=== PATIENT | female | born 1940 | race Caucasian/White ===

== ENCOUNTER 2024-12-09 11:18 | Emergency (ER) | payer MEDICARE, SELFPAY ==
--- NOTE | ~2024-12-09 | CT_ITS ---
EXAMINATION: CT HEAD WITHOUT CONTRAST CLINICAL INFORMATION: Fall, right forehead hematoma, on aspirin, R/O COMPARISON: February 28, 2012 is not available on PACS. TECHNIQUE: Contiguous axial imaging was performed from the skull base to vertex without intravenous administration of contrast. This CT examination was performed using dose optimization techniques as appropriate, variously including the following: *Automated exposure control *Adjustment of mA and/or kV according to patient size (this includes techniques or standardized protocols for targeted exams where dose is matched to indication/reason for exam; i.e. extremities or head) *Use of iterative reconstruction technique DLP: 581 mGy-cm FINDINGS: Soft tissue contusion right frontal/forehead. No acute cortical disruption in the bony calvarium. No acute intracranial hemorrhage, mass effect, midline shift, hydrocephalus or herniation. Rivas-white matter differentiation is normal. Bilateral multifocal patchy and confluent deep periventricular white matter hypodensities involving centrum semiovale and simon radiata. Sellar/suprasellar region demonstrated no gross masses or focal hemorrhage. Craniocervical junction is intact with normal position of the cerebellar tonsils. No air-fluid levels in the paranasal sinuses. Poor pneumatization of the left mastoid air cells. Tympanic cavities are aerated. No gross hematoma in the intraconal or extraconal compartments of the orbits. Intracranial vascular calcifications. Small lipoma anterior interhemispheric falx, congenital.. CT/CT head/brain wo IV con IMPRESSION: Soft tissue contusion right frontal/forehead. No acute fracture or bony calvarium. No acute intracranial hemorrhage. 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 Atherosclerosis disease. Electronically signed by: Stew Barrera MD 12/09/2024 01:59 PM EDT
[2024-12-09 11:22] VITALS: BP 160/74; PULSE 96; O2SAT 99
[2024-12-09 11:26] VITALS: BMI 22.9
--- OUTSIDE RECORDS SUMMARY | 2024-12-09 12:08 | XMS_ITS | Continuity of Care Document ---
Author Organization [facility] Address [address] [place] [address]- Support Name Relationship Address Phone BRANDON, JIMMIE Personal Relationship Unknown Unav ailable BRANDON, HUGO Personal Relationship Unknown Unav ailable BRANDON, HUGO Personal Relationship Unknown Unav ailable BRANDON, JIMMIE Personal Relationship Unknown Unav ailable BRANDON, HUGO Personal Relationship Unknown Unav ailable BRANDON, HUGO Personal Relationship Unknown Unav ailable BRANDON, JIMMIE Personal Relationship Unknown Unav ailable BRANDON, HUGO Personal Relationship Unknown Unav ailable BRANDON, HUGO Personal Relationship Unknown Unav ailable BRANDON, JIMMIE Personal Relationship Unknown Unav ailable BRANDON, ENMOND Personal Relationship Unknown Unav ailable BRANDON, JIMMIE Personal Relationship Unknown Unav ailable BRANDON, JIMMIE Personal Relationship Unknown Unav ailable BRANDON, JIMMIE Personal Relationship Unknown Unav ailable BRANDON, JIMMIE Personal Relationship Unknown Unav ailable BRANDON, JIMMIE Personal Relationship Unknown Unav ailable BRANDON, JIMMIE Personal Relationship Unknown Unav ailable BRANDON, HUGO Personal Relationship Unknown Unav ailable BRANDON, JIMMIE Personal Relationship Unknown Unav ailable BRANDON, HUGO Personal Relationship Unknown Unav ailable BRANDON, HUGO Personal Relationship Unknown Unav ailable BRANDON, JIMMIE Personal Relationship Unknown Unav ailable BRANDON, JIMMIE Personal Relationship Unknown Unav ailable BRANDON, HUGO spouse Unknown Unavailable BRANDON, HUGO Personal Relationship Unknown Unav ailable BRANDON, JIMMIE Personal Relationship Unknown Unav ailable BRANDON, JIMMIE Personal Relationship Unknown Unav ailable GOODWIN, ARMIDA child Unknown Unavailable BRANDON, JIMMIE Personal Relationship Unknown Unav ailable Care Team Providers Care Certified Nurse Practitioner Name Role Phone Jose Roberto Cifuentes MD Primary Care Physician Encounter [facility] Date(s): 11/07/24 - 12/07/24 [facility] [address] [place] [id number] Encounter Type: Triage Allergies, Adverse Reactions, Alerts Substance Criticality Severity Reaction Reaction Severity Status Biaxin Hives Active Immunizations Given and Recorded Vaccine Date Status Refusal Reason influenza virus vaccine, inactivated 1 05/04/24 Gi junie influenza virus vaccine, inactivated 04/26/23 Elvis rded influenza virus vaccine, inactivated 05/07/22 Elvis rded influenza virus vaccine, inactivated 05/24/21 Give n influenza virus vaccine, inactivated 2 05/07/18 Gi junie influenza virus vaccine, inactivated 3 04/29/17 Gi junie influenza virus vaccine, inactivated 06/04/16 Give n influenza virus vaccine, inactivated 06/20/15 Give n influenza virus vaccine, inactivated 05/30/14 Give n influenza virus vaccine, inactivated 05/19/13 Give n influenza virus vaccine, inactivated 05/08/11 Give n SARS-CoV-2(COVID-19)mRNA-LNP vac([id number]) 08/10/23 Recorded [id number] bivalent booster vax 07/22/22 Recorded SARS-CoV-2 (COVID-19) mRNA-1273 vaccine 04/01/22 R ecorded SARS-CoV-2 (COVID-19) mRNA-1273 vaccine 04/01/22 R ecorded SARS-CoV-2 (COVID-19) mRNA-1273 vaccine 05/29/21 R ecorded SARS-CoV-2 (COVID-19) mRNA-1273 vaccine 11/21/20 R ecorded SARS-CoV-2 (COVID-19) mRNA-1273 vaccine 10/24/20 R ecorded Influenza Virus Vaccine (oldterm) 05/23/19 Recorde d Influenza Virus Vaccine (oldterm) 4 06/08/07 Given Influenza Virus Vaccine (oldterm) 5 07/01/06 Given tetanus-diphtheria toxoids (Td) 10/10/16 Given tetanus-diphtheria toxoids (Td) 02/28/12 Recorded tetanus-diphtheria toxoids (Td) 04/03/05 Given pneumococcal 13-valent vaccine 09/06/14 Given Pneumococcal Vaccine (oldterm) 04/03/05 Given 1Result Comment: [facility]: [id number] Screening Checklist reviewed with patient. Negative for any contraindications. 2Result Comment: [05/07/2018] [facility] [id number] 3Result Comment: [04/29/2017] [facility] [id number] 4Admin Note: given in clinic 5Admin Note: GIVEN IN CLINIC SHAM Medications aspirin 81 mg oral capsule 1 capsule = 81 mg, By Mouth, Daily, # 90 capsule, 3 Refills, Maintenance, 04/12/22 10:57:00 AM EDT, [id number], Partial fill upon patient request if the prescription is for a scheduleII opioid drug., 165.1, cm, 04/11/22 9:52:00 EDT, Height Start Date: 04/12/22 Status: Ordered Quantity: 90.0 Unit: capsule Repeat number: 4 atorvastatin 20 mg oral tablet See Instructions, TAKE 1 TABLET DAILY, # 90 tablet, 1 Refills, Maintenance, 07/15/24 9:12:00 AM EST, [facility], 158.7, cm, 07/06/24 14:12:00 EST, Height Start Date: 07/15/24 Status: Ordered Quantity: 90.0 Unit: tablet Repeat number: 1 ezetimibe 10 mg oral tablet See Instructions, TAKE 1 TABLET DAILY, # 90 tablet, 3 Refills, Maintenance, 07/06/24 2:36:00 PM EST,[facility], 158.7, cm, 07/06/24 14:12:00 EST, Height Start Date: 07/06/24 Status: Ordered Quantity: 90.0 Unit: tablet Repeat number: 4 Farxiga 5 mg oral tablet 1 tablet = 5 mg, By Mouth, Daily, Alternative to Invokana, # 90 tablet, 3 Refills, Maintenance, 11/11/24 4:21:00 AM EDT, Tablet, [facility], Partial fill upon patient request if theprescription is for a schedule II opioid drug., 158.7, cm, 10/14/24 15:50:00 EDT, Height Start Date: 11/11/24 Status: Ordered Quantity: 90.0 Unit: tablet Repeat number: 4 Invokana 100 mg oral tablet 1 tablet = 100 mg, By Mouth, Daily at bedtime, # 90 tablet, 3 Refills, Maintenance, 11/01/24 10:42:00AM EDT, Tablet, [facility], Partial fill upon patient request if the prescription is for a schedule II opioid drug., 158.7, cm, 10/14/24 15:50:00 EDT, Height Start Date: 11/01/24 Status: Ordered Quantity: 90.0 Unit: tablet Repeat number: 4 levothyroxine 0.05 mg oral tablet 1 tablet = 50 mcg, By Mouth, Daily, # 90 tablet, 3 Refills, Maintenance, 07/06/24 2:36:00 PM EST, Tablet, [facility], Partial fill upon patient request if the prescription is for a schedule II opioid drug., 158.7, cm, 07/06/24 14:12:00 EST, Height Start Date: 07/06/24 Status: Ordered Quantity: 90.0 Unit: tablet Repeat number: 4 Lyumjev KwikPen 100 units/mL injectable solution = 1 units, Subcutaneous Infusion, Once, tid before meals. BS <100, none; 100-150 6 units; 151-200 7 units; 201-250 8 units; 251-300 9 units; 301-350 10 units; > 350 11 units. Replaces Humalog, # 15 mL, 3 Refills, Soft Stop, 10/17/23 5:46:00 AM EDT, [facility], Partial fill upon patient request if the prescription is for a schedule II opioid drug., 158.7, cm, 09/14/23 14:53:00 EST, Height Start Date: 10/17/23 Status: Ordered Quantity: 15.0 Unit: mL Repeat number: 4 Lyumjev KwikPen 100 units/mL injectable solution = 1 units, Subcutaneous Infusion, Once, 10 UNITS Befroe breakfast and diner an 4 units after [facility] meal, # 15 mL, 3 Refills, Soft Stop, 11/01/24 10:42:00 AM EDT, [facility], Partial fill upon patient request if the prescription is for a schedule II opioid drug., 158.7, cm, 10/14/24 15:50:00 EDT, Height Start Date: 11/01/24 Status: Ordered Quantity: 15.0 Unit: mL Repeat number: 4 Obey Álvarez 100 units/mL injectable solution = 1 units, Subcutaneous Infusion, Once, Take 10 units before breakfast and dinner and 4 units afterlunch ([facility]) meal, # 15 mL, 3 Refills, Soft Stop, 11/08/24 5:53:00 PM EDT, [facility], Partial fill upon patient request if the prescription is for a schedule II opioid drug., 158.7, cm, 10/14/24 15:50:00 EDT, Height Start Date: 11/08/24 Status: Ordered Quantity: 15.0 Unit: mL Repeat number: 4 metFORMIN 1000 mg oral tablet 1 tablet, By Mouth, Daily, # 90 tablet, 3 Refills, Maintenance, 07/06/24 2:35:00 PM EST, [facility], 158.7, cm, 07/06/24 14:12:00 EST, Height Start Date: 07/06/24 Status: Ordered Quantity: 90.0 Unit: tablet Repeat number: 4 Pen [place], 31 G x 5 mm BD Ultra Fine III See Instructions, # 200 each, Refills 5, Tot. Refills 5, Maintenance, Use to inject insulin TID Dx:250.02 IDDM 90 day supply, 10/21/24 10:21:00 AM EDT, Compound, 158.7, cm, 10/14/24 15:50:00 EDT, Height Start Date: 10/21/24 Stop Date: 04/19/25 Status: Ordered Quantity: 200.0 Unit: each Repeat number: 6 Tresiba 100 units/mL subcutaneous solution = 40 units, Subcutaneous Infusion, Daily, Renew, but do not send until June, # 30 mL, 3 Refills, Maintenance, 10/18/24 9:07:00 AM EDT, [facility] #[id number], Partial fill upon patient request if the prescription is for a schedule II opioid drug., 158.7, cm, 10/14/24 15:50:00 EDT, Height Start Date: 10/18/24 Status: Ordered Quantity: 30.0 Unit: mL Repeat number: 4 Indication: Type 2 diabetes mellitus without complications Problem List Condition Confirmation Course Effective Dates Status H ealth Status Informant Adult-onset obesity Confirmed Active Depression Confirmed Active Diabetes mellitus - adult onset Confirmed Active Diabetic renal disease Confirmed Active Hyperlipidemia Confirmed Active Hypertension Confirmed Active Right lumbar radiculopathy Confirmed Active Mild non proliferative diabetic retinopathy Confirmed Active Diabetes mellitus, type 2 Confirmed Active Social History Social History Type Response Smoking Status Never (less than 100 in lifetime) entered on: 10/14/24 Sex Sex Representation Female (finding) Patient Care team information Care Team Personnel Name: Jose Roberto Cifuentes MD Position: S Physician - Primary Care Member Role: PCP Address: [address] [place] [id number] Telecom: Care Team Related Persons Name: HUGO TAYLOR Name: ARMIDA GOODWIN Insurance Providers Guarantor name: WILLIAM ESTEBAN [facility] Information #: 1 Payer: MEDICARE PART B OUTPT Member Number: NA Policy Number: NA Group Number: NA
--- OUTSIDE RECORDS SUMMARY | 2024-12-09 12:08 | XMS_ITS | Continuity of Care Document ---
Author Organization [facility] Address [address] [place] [address]- Support Name Relationship Address Phone BRANDON, JIMMIE Personal Relationship Unknown Unav ailable BRANDON, HUGO Personal Relationship Unknown Unav ailable BRANDON, HUGO Personal Relationship Unknown Unav ailable BRANDON, JIMMIE Personal Relationship Unknown Unav ailable BRANDON, HUGO Personal Relationship Unknown Unav ailable BRANDON, HUGO Personal Relationship Unknown Unav ailable BRANDON, JIMMEI Personal Relationship Unknown Unav ailable BRANDON, HUGO [...] Unknown Unav ailable Care Team Providers Care [employer] Chemist Name Role Phone Jose Roberto Cifuentes MD Primary Care Physician [phone] Encounter [facility] Date(s): 11/08/24 - 12/08/24 [facility] [address] [place], [place] [address] Encounter Type: Triage Allergies, Adverse Reactions, Alerts [...] virus vaccine, inactivated 05/08/11 Give n SARS-CoV-2(COVID-19)mRNA-LNP vac([id number]) 08/10/23 Recorded [id number] bivalent booster vax 07/22/22 Recorded SARS-CoV-2 (COVID-19) [...] Pneumococcal Vaccine (oldterm) 04/03/05 Given 1Result Comment: [facility]: [id number] Screening Checklist reviewed with patient. Negative for any contraindications. 2Result Comment: [05/07/2018] [facility] [id number] 3Result Comment: [04/29/2017] [facility] [id number] 4Admin Note: given in clinic 5Admin Note: GIVEN IN CLINIC SHAM Medications aspirin 81 mg oral capsule 1 capsule = 81 mg, By Mouth, Daily, # 90 capsule, 3 Refills, Maintenance, 04/12/22 10:57:00 AM EDT, [facility] #[id number], Partial fill upon patient request if the [...] breakfast and dinner and 4 units afterlunch ([facility]) meal, # 15 mL, 3 Refills, Soft [...] 90.0 Unit: tablet Repeat number: 4 Pen [place], 31 G x 5 mm BD Ultra [...] 3 Refills, Maintenance, 10/18/24 9:07:00 AM EDT, [facility] #[id number], Partial fill upon patient request if the [...] Care team information Care Team Personnel Name: Vane PERES, Jose Roberto Maria Position: [facility] Physician - Primary Care Member Role: PCP Address: [address] [place] [id number] Telecom: Care Team Related Persons Name: HUGO TAYLOR Name: ARMIDA GOODWIN Insurance Providers Guarantor name: WILLIAM ESTEBAN [facility] Plan Information #: 1 Payer: MEDICARE PART B OUTPT Member Number: NA Policy Number: NA Group Number: NA
[2024-12-09 12:21] VITALS: BP 165/91; PULSE 104; RESP 20; TEMP 36.8; O2SAT 98
--- NOTE | 2024-12-09 12:35 | ED.FALL ---
HPI - Fall General Chief Complaint: Fall Stated Complaint: FALL Time Seen by Provider: 12/09/24 12:23 Source: patient Mode of arrival: EMS Limitations: no limitations History of Present Illness ED Provider: Dr. Tam Melchor HPI Narrative: 84-year-old female with a history of diabetes mellitus, hypertension, hypothyroidism who presents emergency department for evaluation of trip and fall with head injury. Patient was with her friend at the [facility]. When they left the building she tripped on a curb falling forward and striking her head. Patient also injured her left knee and right thumb. She denied any loss of consciousness. Here in the emergency department she is complaining of pain in her right forehead where she has a hematoma otherwise she has no other complaints. She denied headache, nausea, vomiting, weakness, neck pain, abdominal pain, chest pain. The daughter states that her last tetanus vaccination was given in 2017. Related Data Allergies Allergy/AdvReac Type Severity Reaction Status Date / Time clarithromycin [From BIAXIN] Allergy Unknown PT DOESN'T Verified 12/09/24 11:34 REMEMBER REACTION Review of Systems Review of Systems: Yes all other systems are reviewed and are negative [facility] Social History Social History Advance Directives: No Advance Directives Information Provided: Yes Do you have a plan to hurt others: No Plan Physical Exam Vital Signs: Vital Signs: Last Vital Signs Temp 98.2 F 12/09/24 12:21 Pulse 98 12/09/24 16:05 Resp 16 12/09/24 16:05 BP 179/86 H 12/09/24 16:05 Pulse Ox 97 12/09/24 16:05 O2 Del Method Room Air 12/09/24 16:05 BMI result Body Mass Index 22.9 Vital signs revealed an elevated heart rate of 104, elevated blood pressure of 165/91 Exam: General: Awake, alert in no distress Head: Normocephalic, 4 x 4 cm hematoma to the right forehead with an abrasion and no suturable lesion EENT: PERRL, Lids normal, sclera normal, conjunctiva normal, nose normal , ears normal, throat without erythema or exudates, no facial tenderness Neck: Supple, no trapezius muscle tenderness or C-spine tenderness, no adenopathy Lung: breath sounds symmetric, no wheezing, rales or rhonchi Chest: symmetric movement, nontender Heart: regular rate and rhythm, normal S1, S2 no murmurs or rubs Abdomen: soft, non-tender, nondistended, normal bowel sounds Back: no vertebral tenderness, no CVAT Extremities: Patient has an abrasion to her left knee, full range of motion of her upper and lower extremities. Patient has a small abrasion to her left thumb Neuro: Awake, alert, oriented, normal speech, cranial nerves intact, moves all extremities symmetrically Psych: Pleasant, cooperative Medications Administered Discontinued Medications Generic Name Dose Route Start Last Admin Trade Name Andres PRN Reason Stop Dose Admin Acetaminophen 975 mg 12/09/24 15:31 12/09/24 15:40 Acetaminophen 325 Mg Tablet PO 12/09/24 15:32 975 mg ONCE ONE Administration Bacitracin 1 appl 12/09/24 12:37 12/09/24 13:08 Bacitracin Oint 0.9 Gm Packet TOPICAL 12/09/24 12:38 1 appl ONCE ONE Administration Protocol Diphtheria/Tetanus/Acell Pertussis 0.5 ml 12/09/24 12:41 12/09/24 13:08 Diphth,Pertus(Acell),Tet Adult 0.5 Ml Syringe IM 12/09/24 12:42 0.5 ml .ONCE ONE Administration Medical Decision Making Medical Decision Making MDM Narrative: 84-year-old female with a history of diabetes mellitus, hypertension, hypothyroidism who presents emergency department for evaluation of trip and fall with head injury. Patient was with her friend at the [facility]. When they left the building she tripped on a curb falling forward and striking her head. Patient also injured her left knee and right thumb. She denied any loss of consciousness. Here in the emergency department she is complaining of pain in her right forehead where she has a hematoma otherwise she has no other complaints. She denied headache, nausea, vomiting, weakness, neck pain, abdominal pain, chest pain. The daughter states that her last tetanus vaccination was given in 2017. Vital signs revealed an elevated heart rate and elevated blood pressure otherwise unremarkable. Exam did reveal a large hematoma with an abrasion to her right forehead, abrasion to her left knee and abrasion to left thumb. She had no other significant tenderness. Differential diagnosis: ?Includes but is not limited to skull fracture, intracranial bleed, forehead hematoma Course: 12:[address] scan of the head without IV contrast to rule out fracture, intracranial bleed. Patient was given Tdap vaccination IM. Patient's abrasions were cleaned, covered with bacitracin and nonstick dressing by ED PCT. 17:38 CT of the head revealed no acute fracture or bleed. I did discuss this with the patient and the patient's daughter. The patient was advised to stop her aspirin for 2 days. She was advised to take Tylenol as needed for pain and to avoid NSAIDs. She was advised to apply bacitracin twice a day to her abrasions. She was given printed and verbal instructions on abrasions and head injuries and discharged in the care of her daughter. Admission/Observation Consideration of admission/observation: Escalation of care including admission/observation considered (Yes) Lab Data MDM Lab Attestation statement: I reviewed the patient's lab results. Labs: Lab Results 12/09/24 Range/Units 15:35 POC Glucose 69 (60-115) mg/dL Radiology Impression Discussion of test interpretation with radiology: I have reviewed the radiologist's reading. Radiologist Impression: CT head/brain wo IV con IMPRESSION: Soft tissue contusion right frontal/forehead. No acute fracture or bony calvarium. No acute intracranial hemorrhage. 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 Atherosclerosis disease. Electronically signed by: Stew Barrera MD 12/09/2024 01:59 PM Independent Historian Clinical information obtained from an independent historian. History obtained from or confirmed by: Other (Daughter) Chronic Conditions Patient?s care impacted by: Diabetes and Hypertension Discharge Plan Discharge Clinical Impression: Closed head injury, Fall from slip, trip, or stumble, Traumatic hematoma of forehead, Abrasion Patient Disposition: Home, Self-Care Instructions: Head Injury (DC), Abrasion (ED) Additional Instructions: Your CT scan did not reveal any signs of skull fracture or bleeding in the brain which is reassuring. Take Tylenol (acetaminophen) 500 mg pills, 2 pills every 6 hours as needed for pain or fever. Do not take your aspirin today or tomorrow and then after 2 days you can resume your aspirin dose at night. Apply bacitracin twice a day to the abrasions on your head and on your extremities. Follow the head injury and abrasion instructions. Follow-up with your doctor in 2 days. Please return to the emergency department if your symptoms get worse or if you develop any symptoms that are concerning to you. Print Language: Malay
[2024-12-09] MEDS: Diphth,Pertus(ACell),Tet Adult 0.5 ML SYRINGE IM (13:08)
[2024-12-09] MEDS: Bacitracin Oint 0.9 GM PACKET 1 APPL TOPICAL (13:08)
[2024-12-09 15:39] LABS: Glucose, Whole Blood 69 mg/dL (60-115)
[2024-12-09] MEDS: Acetaminophen 325 MG TABLET 975 MG PO (15:40)
[2024-12-09 16:05] VITALS: BP 179/86; PULSE 98; RESP 16; O2SAT 97
[2024-12-09 17:41] VITALS: BP 179/86; PULSE 98; RESP 16; TEMP 36.6; O2SAT 97
== END 2024-12-09 17:50 | disposition home or self-care (01) ==
PROVIDERS: Emergency Provider Emergency Medicine Emergency Medical Services; PCP Family Medicine
DX: S09.90XA Unspecified injury of head, initial encounter (principal); S00.83XA Contusion of other part of head, initial encounter; S80.212A Abrasion, left knee, initial encounter; S60.312A Abrasion of left thumb, initial encounter; W10.1XXA Fall (on)(from) sidewalk curb, initial encounter; Y93.89 Activity, other specified; Y92.480 Sidewalk as the place of occurrence of the external cause; Y99.9 Unspecified external cause status; Z23 Encounter for immunization; E11.9 Type 2 diabetes mellitus without complications
CPT/HCPCS: 70450; 82947; 90471; 90715; 99283; 99284

== ENCOUNTER → 2024-12-09 12:37 | Outpatient (BNV) | payer SELFPAY | PROVIDERS: Emergency Provider Emergency Medicine Emergency Medical Services; PCP Family Medicine; Visit Provider Radiology Diagnostic Radiology | DX: I70.90 Unspecified atherosclerosis (principal); R90.82 White matter disease, unspecified | CPT/HCPCS: 70450 ==